=== PATIENT | male | born 1935 ===

== ENCOUNTER 2019-07-12 08:05 | Day surgery (SDC) | payer MEDICARE ==
[~2019-07-12 08:05] MED LIST: Acetaminophen TAB* 325 MG PO PRN; Buffered Lidocaine 1% SYRIN* 1 ML/SYRINGE INTRADERM ONE
[2019-07-12] MEDS ORDERED: Midazolam* 1 MG/ML 2 ML VIAL (2 MG) ONE (08:34)
[2019-07-12 09:28] VITALS: BP 135/66
--- NOTE | 2019-07-12 10:51 | OP ---
DATE OF OPERATION/DATE OF DICTATION: 07/12/2019. DATE OF : 1935. SURGEON: Dr. Vinod Donohue. STEWARDESSES TEACHER: None. ANESTHESIA: Topical with intravenous sedation. PRE-OP DIAGNOSIS: Cataract, left eye. POST-OP DIAGNOSIS: Cataract, left eye. OPERATIVE PROCEDURE: Phacoemulsification and cataract extraction with posterior chamber intraocular lens implant, left eye. COMPLICATIONS: None. BLOOD LOSS: None. OPERATIVE FINDINGS: The patient was brought to the operating room and received a small amount of int ravenous sedation. A drop of Tetracaine was placed in his left eye. He was prepped and draped in th e usual sterile fashion for ophthalmic surgery and attention was directed to the left eye where a spe culum was placed. A paracentesis was created at the 5 o'clock position and 0.1 cc of 1 percent prese rvative-free Lidocaine was injected into the anterior chamber followed by DisCoVisc. The eye was dig itally stabilized while a 2.75 mm keratome was used to create a triplanar clear corneal incision at t he 3 o'clock position. A continuous curvilinear capsulorrhexis was created with a cystotome and Utra ta forceps. BSS on a cannula was used to hydrodissect the lens from the capsule. Phacoemulsificatio n was performed in a wxiwwt-xqk-[id number] technique to create four fragments which were removed. Resid ual cortical material was removed with irrigation and aspiration. DisCoVisc was used to inflate the c apsular bag and an AUOOTO 19.5 diopter lens was folded and inserted into the capsular bag. DisCoVisc was removed using irrigation and aspiration. BSS on a cannula was used to hydrate the corneal shellie a and seal the wound. At the end of the case the pupil was round and the lens was centered. The eye was of normal pressure and the wound was water tight. The speculum was removed and topical Maxitrol ointment was placed on the surface of the eye. The eye was closed, patched and shielded and the mary ellen ent was sent to the recovery room in stable condition with post operative instructions and follow-up appointment given. [id number]/[facility] #: [id number]
[2019-07-12] MEDS ORDERED: Ketorolac 0.5% OPHTH (NF) 0.5 % 5 ML BTL ONE (11:13)
[2019-07-12] MEDS ORDERED: Neomycin/Polymy/Dex OPHTH.OIN* 3.5 GM ONE (11:13)
[2019-07-12] MEDS ORDERED: Tetracaine 0.5% OPTH.SOL 4 ML* 1 DROP BTL ONE (11:13)
[2019-07-12] MEDS ORDERED: Phenylephrine OPHTH SOL 2.5%* 2 ML ONE (11:13)
[2019-07-12] MEDS ORDERED: Lidocaine 1% MPF ** 5 ML VIAL ONE (11:13)
[2019-07-12] MEDS ORDERED: Tropicamide 1% OPTH.SOL* BTL ONE (11:13)
[2019-07-12] MEDS ORDERED: Cyclopentolate 1% OPTH.SOL* 2 ML BTL ONE (11:13)
== END 2019-07-12 09:46 | disposition home or self-care (01) ==
LOC: OREAST 08:05
PROVIDERS: ATTEND Ophthalmology
DX: H25.12 Age-related nuclear cataract, left eye (principal); Z88.0 Allergy status to penicillin; Z88.1 Allergy status to other antibiotic agents; Z86.73 Personal history of transient ischemic attack (TIA), and cerebral infarction without residual deficits
CPT/HCPCS: A9270-GY; J2250; V2632

== ENCOUNTER → 2019-07-19 08:54 | Day surgery (SDC) | payer MEDICARE ==
[~2019-07-19 08:54] MED LIST changes: -Acetaminophen TAB* 325 MG PO PRN; -Buffered Lidocaine 1% SYRIN* 1 ML/SYRINGE INTRADERM ONE; +Cyclopentolate 1% OPTH.SOL* 2 ML BTL ONE; +Ketorolac 0.5% OPHTH (NF) 0.5 % 5 ML BTL ONE; +Lidocaine 1% MPF ** 5 ML VIAL ONE; +Midazolam* 1 MG/ML 2 ML VIAL (2 MG) ONE; +Neomycin/Polymy/Dex OPHTH.OIN* 3.5 GM ONE; +Phenylephrine OPHTH SOL 2.5%* 2 ML ONE; +Tetracaine 0.5% OPTH.SOL 4 ML* 1 DROP BTL ONE; +Tropicamide 1% OPTH.SOL* BTL ONE
[2019-07-19 10:56] VITALS: BP 115/62
--- NOTE | 2019-07-19 11:36 | OP ---
DATE OF OPERATION/DATE OF DICTATION: 07/19/2019 - [facility] DATE OF : 1935. SURGEON: Dr. Vinod Donohue. [employer] SALESPERSON: None. ANESTHESIA: Topical with intravenous sedation. PRE-OP DIAGNOSIS: Cataract, right eye. POST-OP DIAGNOSIS: Cataract, right eye. OPERATIVE PROCEDURE: Phacoemulsification and cataract extraction with posterior chamber intraocular lens implant, right eye. COMPLICATIONS: None. BLOOD LOSS: None. DESCRIPTION OF PROCEDURE: The patient was brought to the operating room and received a small amount of intravenous sedation. A drop of Tetracaine was placed in his right eye. He was prepped and draped in the usual sterile fashion for ophthalmic surgery and attention was directed to the right eye where a speculum was placed. A paracentesis was created at the 11 o'clock position and 0.1 cc of 1 percent preservative-free Lidocaine was injected into the anterior chamber followed by DisCoVisc. The eye was digitally stabilized while a 2.75 mm keratome was used to create a triplanar clear corneal incision at the 9 o'clock position. A continuous curvilinear capsulorrhexis was created with a cystotome and Utrata forceps. BSS on a cannula was used to hydrodissect the lens from the capsule. Phacoemulsification was performed in a divide-and- conquer technique to create four fragments which were removed. Residual cortical material was removed with irrigation and aspiration. DisCoVisc was used to inflate the capsular bag and an AUOOTO 20.5 diopter lens was folded and inserted into the capsular bag. DisCoVisc was removed using irrigation and aspiration. BSS on a cannula was used to hydrate the corneal stroma and seal the wound. At the end of the case the pupil was round and the lens was centered. The eye was of normal pressure and the wound was water tight. The speculum was removed and topical Maxitrol ointment was placed on the surface of the eye. The eye was closed, patched and shielded and the patient was sent to the recovery room in stable condition with post operative instructions and follow-up appointment given. [id number]/[facility] #: [id number] MTDD
== END | disposition home or self-care (01) ==
LOC: OREAST 08:54
PROVIDERS: ATTEND Ophthalmology
DX: H25.11 Age-related nuclear cataract, right eye (principal); Z88.0 Allergy status to penicillin; Z88.1 Allergy status to other antibiotic agents
CPT/HCPCS: A9270-GY; J2250; V2632